=== PATIENT | female | born 1995 | race Caucasian/White ===

== ENCOUNTER 2019-12-03 17:27 | Emergency (ER) | payer MEDICAID ==
[~2019-12-03] VITALS: Ht 154.9 cm; Wt 65.8 kg
[2019-12-03 17:39] VITALS: Ht 154.9 cm; Wt 65.8 kg
[2019-12-03 18:23] VITALS: BP 114/80
== END 2019-12-03 18:23 | disposition home or self-care (01) ==
LOC: ED 17:27
DX: S31.815A Open bite of right buttock, initial encounter (principal); W54.0XXA Bitten by dog, initial encounter; Y93.89 Activity, other specified; Y92.89 Other specified places as the place of occurrence of the external cause; Y99.8 Other external cause status
CPT/HCPCS: 90715